=== PATIENT | male | born 1980 | race Caucasian/White ===

== ENCOUNTER 2018-06-02 19:17 | Inpatient (IN) | payer OTHER ==
[2018-06-02 22:56] VITALS: BMI 25.9
--- NOTE | 2018-06-03 00:42 | HP ---
COWS - Scale Resting Pulse: 0= [place] 80 or Below Sweatin=Flushed/Facial Moisture Restless Observation: 0= Sits Still Pupil Size: 1= Pupils >than Normal Bone or Joint Aches: 4=Acute Joint/Muscle Pain Runny Nose/ Eye Tearin= Runny Nose/Eyes GI Upset > 30mins: 1= Stomach Cramp Tremor Observation: 2= Slight Tremor Visible Yawning Observation: 1= 1-2x During Session Anxiety or Irritability: 1=Feels Anxious/Irritable Goose Flesh Skin: 0=Smooth Skin COWS Score: 14 CIWA Score - CIWA Score Nausea/Vomitin Muscle Tremors: 4-Moderate,w/Arms Extend Anxiety: 3 Agitation: 3 Paroxysmal Sweats: 1-Minimal Palms Moist Orientation: 0-Oriented Tacttile Disturbances: 0-None Auditory Disturbances: 0-None Visual Disturbances: 0-None Headache: 2-Mild CIWA-Ar Total Score: 15 Admission ROS BHS - HPI Chief Complaint: Heroin and alcohol withdrawal symptoms Allergies/Adverse Reactions: Allergies Allergy/AdvReac Type Severity Reaction Status Date / Time Sulfa (Sulfonamide Allergy Verified 06/02/18 22:58 Antibiotics) History of Present Illness: 37 years old male with 10 years olf alcohol and heroin dependence is seeking admission to detox. Patient has been in previous detox and reports 2 years of sobriety. He has medical history of asthma and reports insignificant period of sobriety. He denies suicidal ideation and attempt art this time. - Ebola screening Have you traveled outside of the country in the last 21 days: No (N) Have you had contact with anyone from an Ebola affected area: No Have you been sick,other than usual withdrawal symptoms: No Do you have a fever: No - Review of Systems Constitutional: Chills, Malaise, Night Sweats, Weakness EENT: reports: No Symptoms Reported Respiratory: reports: No Symptoms reported Cardiac: reports: No Symptoms Reported GI: reports: Constipated, Poor Appetite, Poor Fluid Intake : reports: No Symptoms Reported Musculoskeletal: reports: No Symptoms Reported Integumentary: reports: No Symptoms Reported Neuro: reports: Tremors Endocrine: reports: No Symptoms Reported Hematology: reports: No Symptoms Reported Psychiatric: reports: No Sypmtoms Reported, Anxious, Depressed Other Systems: Reviewed and Negative Patient History - Patient Medical History Hx Anemia: No Hx Asthma: Yes (Not on medication) Hx Chronic Obstructive Pulmonary Disease (COPD): No Hx Cancer: No Hx Cardiac Disorders: No Hx Congestive Heart Failure: No Hx Hypertension: No Hx Hypercholesterolemia: No Hx Pacemaker: No HX Cerebrovascular Accident: No Hx Seizures: No Hx Dementia: No Hx Diabetes: No Hx Gastrointestinal Disorders: No Hx Liver Disease: No Hx Genitourinary Disorders: No Hx Sexually Transmitted Disorders: No Hx Renal Disease (ESRD): No Hx Thyroid Disease: No Hx Human Immunodeficiency Virus (HIV): No (Negative March 2018) Hx Depression: No Hx Suicide Attempt: No Hx Bipolar Disorder: No Hx Schizophrenia: No Other Medical History: Anxiety - Not on medication - Patient Surgical History Past Surgical History: No Hx Neurologic Surgery: No Hx Cataract Extraction: No Hx Cardiac Surgery: No Hx Lung Surgery: No Hx Abdominal Surgery: No Hx Appendectomy: No Hx Cholecystectomy: No Hx Genitourinary Surgery: No Hx Section: No Hx Orthopedic Surgery: No Anesthesia Reaction: No - PPD History Previous Implant?: No Documented Results: Negative w/o proof Implanted On Prior R Admission?: No PPD to be Administered?: Yes - Reproductive History Patient is a Female of Child Bearing Age (11 -55 yrs old): No (Male) - Smoking Cessation Smoking history: Current every day smoker Have you smoked in the past 12 months: Yes Aproximately how many cigarettes per day: 8 Hx Chewing Tobacco Use: No Initiated information on smoking cessation: Yes 'Breaking Loose' booklet given: 06/03/18 - Substance & Tx. History Hx Alcohol Use: Yes Hx Substance Use: Yes Substance Use Type: Alcohol, Cocaine, Heroin Hx Substance Use Treatment: Yes ([facility]) - Substances Abused Alcohol Route: Oral Frequency: Daily Amount used: 1/2 a pint Rum Age of first use: 20 Date of Last Use: 06/01/18 Heroin Route: Injection Frequency: Daily Amount used: $200 Age of first use: 27 Date of Last Use: 06/02/18 Cocaine Route: Injection Frequency: Daily Amount used: $80 Age of first use: 36 Date of Last Use: 06/02/18 Family Disease History - Family Disease History Family Disease History: Diabetes: Grandparent Admission Physical Exam BHS - Vital Signs Vital Signs: Vital Signs - 24 hr 06/02/18 22:33 Temperature 97.8 F Pulse Rate 70 Respiratory 18 Rate Blood Pressure 127/84 - Physical General Appearance: Yes: Moderate Distress HEENTM: Yes: EOMI, Normal ENT Inspection, Normocephalic, Normal Voice Respiratory: Yes: Lungs Clear, Normal Breath Sounds, No Respiratory Distress Neck: Yes: Supple Breast: Yes: Breast Exam Deferred Cardiology: Yes: Regular Rhythm, Regular Rate Abdominal: Yes: Normal Bowel Sounds Genitourinary: Yes: Within Normal Limits Back: Yes: Normal Inspection Musculoskeletal: Yes: Within Normal Limits, full range of Motion Extremities: Yes: Tremors Neurological: Yes: Fully Oriented, Normal Mood/Affect Integumentary: Yes: Dry Lymphatic: Yes: Within Normal Limits - Diagnostic (1) Asthma Current Visit: Yes Status: Chronic (2) Opioid dependence with withdrawal Current Visit: Yes Status: Chronic (3) Alcohol dependence with uncomplicated withdrawal Current Visit: Yes Status: Chronic Cleared for Admission [facility] - Detox or Rehab [facility] Level of Care: Medically Managed Detox Regimen/Protocol: Methadone/Librium [facility] Breath Alcohol Content Breath Alcohol Content: 0 Urine Drug Screen - Results Drug Screen Negative: No Urine Drug Screen Results: SANDY-Cocaine, OPI-Opiates, OXY-Oxycodone
[2018-06-03] MEDS ORDERED: NICOTINE POLACRILEX 2 MG GUM BC PRN (00:50)
[2018-06-03] MEDS ORDERED: MAGNESIUM CITRATE 300 ML BOTTLE PO PRN (00:50)
[2018-06-03] MEDS ORDERED: MENTHOL/PHENOL 1 EACH UD MM PRN (00:50)
[2018-06-03] MEDS ORDERED: P-EPHED 60MG/TRIPROLIDI 2.5MG TABLET PO PRN (00:50)
[2018-06-03] MEDS ORDERED: chlordiazePOXIDE HCL 25 MG CAPSULE PO ONE (00:50)
[2018-06-03] MEDS ORDERED: MAG HYDROX/AL HYDROX/SIMETH 30 ML UNIT-DOSE CUP PO PRN (00:50)
[2018-06-03] MEDS ORDERED: chlordiazePOXIDE HCL 25 MG CAPSULE PO PRN (00:50)
[2018-06-03] MEDS ORDERED: LOPERAMIDE HCL 2 MG CAPSULE PO PRN (00:50)
[2018-06-03] MEDS ORDERED: MAGNESIUM HYDROX 2400MG/30ML ORAL SUSPENSION 30 ML CUP PO PRN (00:50)
[2018-06-03] MEDS ORDERED: ACETAMINOPHEN 325 MG TABLET (FP) PO PRN (00:50)
[2018-06-03] MEDS ORDERED: guaiFENesin/D-METHORPHAN HB 10 ML UNIT-DOSE CUPS PO PRN (00:50)
[2018-06-03] MEDS ORDERED: IBUPROFEN 400 MG TABLET (FP) PO PRN (00:50)
[2018-06-03] MEDS ORDERED: METHADONE HCL 10 MG TABLET (FOR DETOX USE ONLY) PO ONE ×3 (04:01→22:00)
[2018-06-03] MEDS ORDERED: chlordiazePOXIDE HCL 25 MG CAPSULE PO SCH (05:00)
[2018-06-03] MEDS: chlordiazePOXIDE HCL 25 MG CAPSULE PO SCH ×3 (07:11→17:30)
[2018-06-03] MEDS: chlordiazePOXIDE HCL 25 MG CAPSULE PO PRN ×2 (08:42→15:10)
[2018-06-03] MEDS ORDERED: PRENATAL VITAMINS W/ FOLIC ACID TABLET (FP) PO SCH (10:00)
[2018-06-03] MEDS ORDERED: NICOTINE 14 MG/24 HOURS TOPICAL PATCH TD SCH (10:00)
--- NOTE | 2018-06-03 14:43 | PN ---
[facility] CIWA - CIWA Score Nausea/Vomitin Muscle Tremors: 3 Anxiety: 3 Agitation: 2 Paroxysmal Sweats: 1-Minimal Palms Moist Orientation: 0-Oriented Tacttile Disturbances: 1-Very Mild Itch/Numbness Auditory Disturbances: 1-Very Mild Visual Disturbances: 0-None Headache: 2-Mild CIWA-Ar Total Score: 16 BHS COWS - Scale Resting Pulse: 0= [place] 80 or Below Sweatin= Chills/Flushing Restless Observation: 3= Extraneous Movement Pupil Size: 1= Pupils >than Normal Bone or Joint Aches: 2= Severe Diffuse Aches Runny Nose/ Eye Tearin= Runny Nose/Eyes GI Upset > 30mins: 2= Nausea/Diarrhea Tremor Observation of Outstretched Hands: 2= Slight Tremor Visible Yawning Observation: 1= 1-2x During Session Anxiety or Irritability: 2=Irritable/Anxious Goose Flesh Skin: 0=Smooth Skin COWS Score: 16 [facility] Progress Note (SOAP) Subjective: alert,irritable,anxious,interrupted sleep,tremor,pain in the body and back Objective: 06/03/18 14:41 Vital Signs Temperature 97.7 F 06/03/18 10:08 Pulse Rate 70 06/03/18 10:08 Respiratory Rate 16 06/03/18 10:08 Blood Pressure 123/80 06/03/18 10:08 O2 Sat by Pulse Oximetry (%) ekg sinus bradycardia 59/min qt/qtc 412/407 no chest pain,no sob,no dizziness labs pending Assessment: 06/03/18 14:42 withdrawal symptom Plan: continue detox
[2018-06-03 18:58] LABS: URINE APPEARANCE CLEAR; URINE BILIRUBIN NEGATIVE (<2.0 mg/dL); URINE COLOR STRAW; URINE GLUCOSE (UA) NEGATIVE (NEGATIVE); URINE KETONE NEGATIVE (NEGATIVE); URINE LEUK ESTERASE NEGATIVE (NEGATIVE); URINE NITRITE NEGATIVE (NEGATIVE); URINE PROTEIN NEGATIVE (NEGATIVE); URINE UROBILINOGEN NEGATIVE mg/dL (0.2-1.0)
[2018-06-03] MEDS ORDERED: cloNIDine HCL 0.1 MG TABLET PO ONE (19:25)
[2018-06-03] MEDS ORDERED: CYCLOBENZAPRINE HCL 10 MG TABLET (FP) PO PRN (19:25)
[2018-06-03] MEDS ORDERED: hydrOXYzine PAMOATE 50 MG CAPSULE (FP) PO PRN (19:26)
[2018-06-03] MEDS ORDERED: CYCLOBENZAPRINE HCL 10 MG TABLET (FP) PO ONE (19:27)
--- NOTE | 2018-06-03 19:30 | PN ---
S Progress Note Note: withdrawal symptom Vital Signs Temperature 98.2 F 06/03/18 18:03 Pulse Rate 73 06/03/18 18:03 Respiratory Rate 16 06/03/18 18:03 Blood Pressure 116/63 06/03/18 18:03 O2 Sat by Pulse Oximetry (%) flexeril 10 mgs po tid prn clonidine 0.1 mg po now then bid vistaril 5o mgs po q 6 hrs prn for anxiety continue detox closed monitoring
[2018-06-03 21:58] VITALS: BP 133/79; PULSE 78; TEMP 97.9
[2018-06-03] MEDS ORDERED: cloNIDine HCL 0.1 MG TABLET PO SCH (22:00)
[2018-06-03] MEDS ORDERED: MELATONIN 5 MG TABLETS PO PRN (22:00)
[2018-06-03] MEDS ORDERED: THIAMINE HCL 100 MG TABLET (FP) PO SCH (22:00)
--- NOTE | 2018-06-03 22:43 | DS ---
[facility] Detox Discharge Summary Admission Date: 06/02/18 Discharge Date: 06/03/18 - Physical Exam Results Vital Signs: Vital Signs Temperature 97.9 F 06/03/18 21:58 Pulse Rate 78 06/03/18 21:58 Respiratory Rate 16 06/03/18 21:58 Blood Pressure 133/79 06/03/18 21:58 O2 Sat by Pulse Oximetry (%) - Medication Discharge Medications: Ambulatory Orders NK [No Known Home Medication] 06/02/18 - Diagnosis (1) Asthma Status: Chronic (2) Opioid dependence with withdrawal Status: Chronic (3) Alcohol dependence with uncomplicated withdrawal Status: Chronic
[2018-06-04] MEDS ORDERED: chlordiazePOXIDE HCL 25 MG CAPSULE PO SCH ×2 (05:00)
--- NOTE | 2018-06-04 07:42 | DS ---
[facility] Detox Discharge Summary Admission Date: 06/02/18 Discharge Date: 06/03/18 - History Additional Comments: Patient is leaving against medical advance for personal reasons Pertinent Past History: asthma, heroin and alcohol dependence - Physical Exam Results Vital Signs: Vital Signs Temperature 97.9 F 06/03/18 21:58 Pulse Rate 78 06/03/18 21:58 Respiratory Rate 16 06/03/18 21:58 Blood Pressure 133/79 06/03/18 21:58 O2 Sat by Pulse Oximetry (%) Vital Signs Temperature 97.9 F 06/03/18 21:58 Pulse Rate 78 06/03/18 21:58 Respiratory Rate 16 06/03/18 21:58 Blood Pressure 133/79 06/03/18 21:58 O2 Sat by Pulse Oximetry (%) Pertinent Admission Physical Exam Findings: Withdrawal symptoms - Medication Discharge Medications: Ambulatory Orders NK [No Known Home Medication] 06/02/18 - Diagnosis (1) Asthma Status: Chronic (2) Opioid dependence with withdrawal Status: Chronic (3) Alcohol dependence with uncomplicated withdrawal Status: Chronic - AMA Did Patient Leave Against Medical Advice: Yes
--- NOTE | 2018-06-04 08:56 | EKG ---
Test Reason : Blood Pressure : / mmHG Vent. Rate : 059 BPM Atrial Rate : 059 BPM P-R Int : 152 ms QRS Dur : 094 ms QT Int : 412 ms P-R-T Axes : 028 083 067 degrees QTc Int : 407 ms SINUS BRADYCARDIA OTHERWISE NORMAL ECG NO PREVIOUS ECGS AVAILABLE Confirmed by NATHANIEL SANTOYO, ANUSHA ([id number]) on 06/04/2018 8:55:36 AM Referred By: Confirmed By:ANUSHA ARMSTRONG MD
[2018-06-04] MEDS ORDERED: METHADONE HCL 10 MG TABLET (FOR DETOX USE ONLY) PO SCH (10:00)
[2018-06-05] MEDS ORDERED: chlordiazePOXIDE 5 MG CAPSULE PO SCH ×2 (05:00)
[2018-06-05] MEDS ORDERED: METHADONE HCL 5 MG TABLET (FOR DETOX USE ONLY) PO SCH (10:00)
[2018-06-06] MEDS ORDERED: chlordiazePOXIDE HCL 10 MG CAPSULE PO SCH ×2 (05:00)
[2018-06-07] MEDS ORDERED: METHADONE HCL 10 MG TABLET (FOR DETOX USE ONLY) PO SCH (10:00)
[2018-06-08] MEDS ORDERED: METHADONE HCL 5 MG TABLET (FOR DETOX USE ONLY) PO SCH (06:00)
== END 2018-06-03 22:01 | disposition left against medical advice (07) | DRG 770 ==
LOC: YASAS 19:17 → Y6N 23:33
PROVIDERS: ADMIT Surgery; ATTEND Surgery
PROC: HZ2ZZZZ Detoxification Services for Substance Abuse Treatment (ICD-10-PCS; principal; 2018-06-02)
DX: F11.23 Opioid dependence with withdrawal (principal); F10.230 Alcohol dependence with withdrawal, uncomplicated; F14.20 Cocaine dependence, uncomplicated; J45.909 Unspecified asthma, uncomplicated; R00.1 Bradycardia, unspecified; Z88.2 Allergy status to sulfonamides
CPT/HCPCS: 81003; 93005; 93010; J0735

== ENCOUNTER 2019-01-30 23:57 | Inpatient (IN) | payer OTHER ==
--- NOTE | 2019-01-31 02:38 | HP ---
COWS - Scale Resting Pulse: 1= [place] 81-100 Sweatin=Flushed/Facial Moisture Restless Observation: 1= Difficult to Sit Still Pupil Size: 2= Moderately Dilated (Pupils = 4 mm) Bone or Joint Aches: 1= Mild Discomfort Runny Nose/ Eye Tearin= Nasal Congestion GI Upset > 30mins: 0= None Tremor Observation: 2= Slight Tremor Visible Yawning Observation: 1= 1-2x During Session Anxiety or Irritability: 1=Feels Anxious/Irritable Goose Flesh Skin: 0=Smooth Skin COWS Score: 12 CIWA Score Nausea/Vomitin-No Nausea/No Vomiting Muscle Tremors: 3 Anxiety: 3 Agitation: 3 Paroxysmal Sweats: 3 (Increased facial moisture) Orientation: 0-Oriented Tacttile Disturbances: 0-None Auditory Disturbances: 0-None Visual Disturbances: 0-None Headache: 0-None Present CIWA-Ar Total Score: 12 - Admission Criteria OAS Guidelines: Admission for Medically Managed Detox: Requires at least one of the followin. CIWA greater than 12 2. Seizures within the past 24 hours 3. Delirium tremens within the past 24 hours 4. Hallucinations within the past 24 hours 5. Acute intervention needed for co occurring medical disorder 6. Acute intervention needed for co occurring psychiatric disorder 7. Severe withdrawal that cannot be handled at a lower level of care (continued vomiting, continued diarrhea, abnormal vital signs) requiring intravenous medication and/or fluids 8. Patient presents the following: CIWA greater than 12, Acute intervention needed for co-occurring med or psych disorder (Patient w/ cellulitis (L) arm injection site) Admission Criteria Met: Admission criteria met Admission ROS [facility] Chief Complaint: Alcohol and heroin withdrawal. Allergies/Adverse Reactions: Allergies Allergy/AdvReac Type Severity Reaction Status Date / Time Sulfa (Sulfonamide Allergy Verified 01/13/19 22:06 Antibiotics) History of Present Illness: Here for opioid and alcohol detox. Alcohol use since began at age 17. Currently 4-5 1-2 oz shots/day. Heroin use since age 21's. Currently uses 1 bundle/day x 4-5 months. IV. Denies sharing needles or works. Cocaine use since began at age 36. Currently uses 5- 20's/day - IVDU Nicotine use since began at age 16. 1PPD Longest length of sobriety 2 years - 4 years ago. Hx: Overdose about 1 month ago. Has a Narcan kit at home. PMHx: Asthma - no recent relapse. MHHx: Depression. Denies thoughts of harming self or others. Not seeing a MH Provider. No MH meds. Patient Name: Lester Quintana Date: 1980 Address: [address] [place] [address] Sex: Male Rx Written Rx Dispensed Drug Quantity Days Supply Prescriber Name 02/20/2018 02/21/2018 chlordiazepoxide 25 mg capsule 26 5 Arabella Castellanos Exam Limitations: No Limitations - Ebola screening Have you traveled outside of the country in the last 21 days: No Have you had contact with anyone from an Ebola affected area: No Have you been sick,other than usual withdrawal symptoms: No Do you have a fever: No - Review of Systems Constitutional: Chills, Diaphoresis, Changes in sleep (Difficulty falling asleep sometimes) EENT: reports: No Symptoms Reported Respiratory: reports: No Symptoms reported Cardiac: reports: No Symptoms Reported GI: reports: Indigestion (acid reflux - not taking anything) : reports: No Symptoms Reported Musculoskeletal: reports: Back Pain (LBP r/t living in streets and withdrawal.) Integumentary: reports: No Symptoms Reported Neuro: reports: No Symptoms reported Endocrine: reports: No Symptoms Reported Hematology: reports: No Symptoms Reported Psychiatric: reports: Judgement Intact, Orientated x3, Agitated, Anxious, Depressed (Denies thoughts of harmng self or others) Patient History - Patient Medical History Hx Anemia: No Hx Asthma: Yes (Not on medication) Hx Chronic Obstructive Pulmonary Disease (COPD): No Hx Cancer: No Hx Cardiac Disorders: No Hx Congestive Heart Failure: No Hx Hypertension: No Hx Hypercholesterolemia: No Hx Pacemaker: No HX Cerebrovascular Accident: No Hx Seizures: No Hx Dementia: No Hx Diabetes: No Hx Gastrointestinal Disorders: No Hx Liver Disease: No Hx Genitourinary Disorders: No Hx Sexually Transmitted Disorders: No Hx Renal Disease (ESRD): No Hx Thyroid Disease: No Hx Human Immunodeficiency Virus (HIV): No (Negative March 2018) Hx Depression: No Hx Suicide Attempt: No Hx Bipolar Disorder: No Hx Schizophrenia: No - Patient Surgical History Past Surgical History: No Hx Neurologic Surgery: No Hx Cataract Extraction: No Hx Cardiac Surgery: No Hx Lung Surgery: No Hx Breast Surgery: No Hx Breast Biopsy: No Hx Abdominal Surgery: No Hx Appendectomy: No Hx Cholecystectomy: No Hx Genitourinary Surgery: No Hx Section: No Hx Orthopedic Surgery: No Anesthesia Reaction: No - PPD History Previous Implant?: Yes Documented Results: Negative w/o proof Implanted On Prior [facility] Admission?: Yes Date: 06/05/18 PPD to be Administered?: No - Smoking Cessation Smoking history: Current every day smoker Have you smoked in the past 12 months: Yes Aproximately how many cigarettes per day: 20 Hx Chewing Tobacco Use: No Initiated information on smoking cessation: Yes 'Breaking Loose' booklet given: 01/30/19 - Substance & Tx. History Hx Alcohol Use: Yes Hx Substance Use: Yes Substance Use Type: Alcohol, Heroin Hx Substance Use Treatment: Yes (detox, past hx [facility].) - Substances abused Alcohol Substance route: Oral Frequency: Daily Amount used: 4-5 1-2 oz shots Age of first use: 17 Date of last use: 01/30/19 Heroin Substance route: Injection Frequency: Daily Amount used: 1 bundle Age of first use: 21 Date of last use: 01/30/19 Cocaine Substance route: Injection Frequency: Daily Amount used: 5 - 20's Age of first use: 36 Date of last use: 01/30/19 Family Disease History - Family Disease History Family Disease History: Diabetes: Grandparent Admission Physical Exam S - Vital Signs Vital Signs: Vital Signs - 24 hr 01/31/19 01:18 Temperature 98.2 F Respiratory 95 H Rate Blood Pressure 122/75 - Physical General Appearance: Yes: Disheveled, Mild Distress, Tremorous (Slight tremors), Irritable, Sweating (Increased facial moisture), Anxious HEENTM: Yes: EOMI (Jerking movement of eyes on lateral gaze), Hearing grossly Normal, Normal ENT Inspection, Normocephalic, Normal Voice, ANGELINA (Pupils = 4 mm) Respiratory: Yes: Lungs Clear, Normal Breath Sounds, No Respiratory Distress Neck: Yes: No masses,lesions,Nodules, Supple Breast: Yes: Breast Exam Deferred Cardiology: Yes: Regular Rhythm, Regular Rate, S1, S2 Abdominal: Yes: Non Tender, Flat, Soft, Increased Bowel Sounds Genitourinary: Yes: Within Normal Limits Back: Yes: Normal Inspection Musculoskeletal: Yes: full range of Motion, Gait Steady Extremities: Yes: Normal Capillary Refill, Normal Range of Motion, Non-Tender, Tremors (Mild treors) Neurological: Yes: stator tester II-XII NML intact (Jerking movement of eyes on lateral gaze), Fully Oriented, Motor Strength 5/5, Normal Response Integumentary: Yes: Normal Color, Dry, Warm, Rash (Generalized papular-like lesions - from picking skin), Track Pierce (Old and new track pierce), Other ((L) arm with increased warmth, redness, and induration at injection sites) Lymphatic: Yes: Within Normal Limits - Diagnostic (1) History of asthma Current Visit: Yes Status: Chronic (2) Cellulitis Current Visit: Yes Status: Acute Qualifiers: Site of cellulitis: extremity Site of cellulitis of extremity: upper extremity Laterality: left Qualified Code(s): L03.114 - Cellulitis of left upper limb (3) Alcohol dependence with uncomplicated withdrawal Current Visit: Yes Status: Acute (4) Opioid dependence with withdrawal Current Visit: Yes Status: Acute (5) Skin lesions, generalized Current Visit: Yes Status: Chronic Cleared for Admission [facility] - Detox or Rehab [facility] Level of Care: Medically Managed Detox Regimen/Protocol: Methadone/Librium Breathalyzer - Breathalyzer Breathalyzer: 0 Urine Drug Screen - Test Device Lot number: [id number] Expiration date: 09/29/20 - Control Is test valid?: Yes - Results Drug screen NEGATIVE: No Urine drug screen results: SANDY-Cocaine Inpatient Rehab Admission - Rehab Decision to Admit Inpatient rehab admission?: No
[2019-01-31] MEDS ORDERED: MENTHOL/PHENOL 1 EACH UD MM PRN (03:16)
[2019-01-31] MEDS ORDERED: MAGNESIUM CITRATE 300 ML BOTTLE PO PRN (03:16)
[2019-01-31] MEDS ORDERED: NICOTINE POLACRILEX 2 MG GUM BUC PRN (03:16)
[2019-01-31] MEDS ORDERED: METHADONE HCL 10 MG TABLET (FOR DETOX USE ONLY) PO ONE ×2 (03:16→10:00)
[2019-01-31] MEDS ORDERED: MAGNESIUM HYDROX 2400MG/30ML ORAL SUSPENSION 30 ML CUP PO PRN (03:16)
[2019-01-31] MEDS ORDERED: ACETAMINOPHEN 325 MG TABLET (FP) PO PRN ×2 (03:16)
[2019-01-31] MEDS ORDERED: PROCHLORPERAZINE MALEATE 5 MG TABLET PO PRN (03:16)
[2019-01-31] MEDS ORDERED: MELATONIN 5 MG TABLETS PO PRN (03:16)
[2019-01-31] MEDS ORDERED: NICOTINE 14 MG/24 HOURS TOPICAL PATCH TD PRN (03:16)
[2019-01-31] MEDS ORDERED: MAG HYDROX/AL HYDROX/SIMETH 30 ML UNIT-DOSE CUP PO PRN (03:16)
[2019-01-31] MEDS ORDERED: guaiFENesin 200 MG/10 ML 10 ML UNIT-DOSE CUPS PO PRN (03:16)
[2019-01-31] MEDS ORDERED: NALOXONE HCL 0.4 MG/ML VIAL IVPUSH PRN (03:16)
[2019-01-31] MEDS ORDERED: BISMUTH SUBSALICYLATE 524 MG/30 ML UD PO PRN (03:16)
[2019-01-31] MEDS ORDERED: IBUPROFEN 400 MG TABLET (FP) PO PRN (03:16)
[2019-01-31] MEDS: METHOCARBAMOL 500 MG TABLET PO PRN ×2 (04:20→22:55)
[2019-01-31] MEDS: chlordiazePOXIDE HCL 25 MG CAPSULE PO SCH ×3 (04:21→21:50)
[2019-01-31] MEDS: CEPHALEXIN MONOHYDRATE 500 MG CAPSULE (UD) PO SCH ×4 (05:25→23:03)
[2019-01-31] MEDS ORDERED: BACITRACIN 15 GM TUBE TOPICAL OINTMENT TP SCH (10:00)
[2019-01-31] MEDS: PRENATAL VITAMINS W/ FOLIC ACID TABLET (FP) PO SCH (10:27)
[2019-01-31] MEDS: BACITRACIN 0.9 GM PACKET TP SCH ×2 (12:05→21:50)
[2019-01-31 12:37] LABS: HEMATOCRIT 34.8 % (35.4-49); HEMOGLOBIN 11.2 GM/dL (11.7-16.9); MCH 25.6 pg (25.7-33.7); MCHC 32.3 g/dl (32.0-35.9); MEAN CELL VOLUME 79.2 fl (80-96); MEAN PLT VOLUME 7.8 fl (7.5-11.1); PLATELET COUNT 447 K/MM3 (134-434); RBC 4.39 M/mm3 (4.00-5.60); WHITE BLOOD COUNT 6.8 K/mm3 (4.0-10.0)
[2019-01-31 12:43] LABS: ALBUMIN 3.2 g/dl (3.4-5.0); ALK PHOS 104 U/L (45-117); ANION GAP 6 MMOL/L (8-16); BILIRUBIN,TOTAL 0.2 mg/dL (0.2-1); BLOOD UREA NITROGEN 11 mg/dL (7-18); CALCIUM 8.6 mg/dL (8.5-10.1); CHLORIDE 101 mmol/L (98-107); CO2 32 mmol/L (21-32); CREATININE 1.2 mg/dL (0.55-1.3); GLUCOSE,RANDOM 72 mg/dL (74-106); POTASSIUM 4.3 mmol/L (3.5-5.1); SGOT/AST 17 U/L (15-37); SGPT/ALT 14 U/L (13-61); SODIUM 140 mmol/L (136-145); TOT PROT 6.8 g/dl (6.4-8.2)
[2019-01-31 14:48] LABS: PH,URINE 5.5 (5.0-8.0); URINE APPEARANCE CLEAR; URINE BILIRUBIN NEGATIVE (NEGATIVE); URINE COLOR DK YELLOW; URINE GLUCOSE (UA) NEGATIVE (NEGATIVE); URINE KETONE TRACE (NEGATIVE); URINE LEUK ESTERASE NEGATIVE (NEGATIVE); URINE NITRITE NEGATIVE (NEGATIVE); URINE PROTEIN TRACE (NEGATIVE)
--- NOTE | 2019-01-31 15:15 | EKG ---
Test Reason : Blood Pressure : / mmHG Vent. Rate : 065 BPM Atrial Rate : 065 BPM P-R Int : 150 ms QRS Dur : 094 ms QT Int : 418 ms P-R-T Axes : 038 086 075 degrees QTc Int : 434 ms NORMAL SINUS RHYTHM NORMAL ECG WHEN COMPARED WITH ECG OF 03-JUN-2018 01:56, NO SIGNIFICANT CHANGE WAS FOUND Confirmed by ANUSHA ARMSTRONG MD ([id number]) on 01/31/2019 3:15:00 PM Referred By: JACOB Confirmed By:ANUSHA ARMSTRONG MD
--- NOTE | 2019-01-31 16:46 | PN ---
S CIWA - CIWA Score Nausea/Vomitin-No Nausea/No Vomiting Muscle Tremors: 2 Anxiety: 3 Agitation: 1-Slight > Activity Paroxysmal Sweats: 3 Orientation: 0-Oriented Tacttile Disturbances: 2-Mild Itch/Numbness/Burn Auditory Disturbances: 3-Moderate Harsh/Frighten Visual Disturbances: 1-Very Mild Sensitivity Headache: 0-None Present CIWA-Ar Total Score: 15 BHS COWS - Scale Resting Pulse: 0= [place] 80 or Below Sweatin= Chills/Flushing Restless Observation: 1= Difficult to Sit Still Pupil Size: 0= Normal to Room Light Bone or Joint Aches: 0= None Runny Nose/ Eye Tearin= Nasal Congestion GI Upset > 30mins: 0= None Tremor Observation of Outstretched Hands: 2= Slight Tremor Visible Yawning Observation: 1= 1-2x During Session Anxiety or Irritability: 2=Irritable/Anxious Goose Flesh Skin: 3=Piloerection COWS Score: 11 S Progress Note (SOAP) Subjective: Chills, Anxious, Tremors, Sweating. Objective: PATIENT A & O X 3, OBSERVED AMBULATING ON UNIT. IN NO ACUTE DISTRESS. 01/31/19 16:44 Vital Signs Temperature 98.6 F 01/31/19 14:26 Pulse Rate 68 01/31/19 14:26 Respiratory Rate 18 01/31/19 14:26 Blood Pressure 126/74 01/31/19 14:26 O2 Sat by Pulse Oximetry (%) Laboratory Tests 01/31/19 01/31/19 01/31/19 07:00 07:00 07:00 WBC 6.8 RBC 4.39 Hgb 11.2 L Hct 34.8 L MCV 79.2 L MCH 25.6 L MCHC 32.3 RDW 15.0 Plt Count 447 H MPV 7.8 Sodium 140 Potassium 4.3 Chloride 101 Carbon Dioxide 32 Anion Gap 6 L BUN 11 Creatinine 1.2 Creat Clearance w eGFR 68.13 Random Glucose 72 L Calcium 8.6 Total Bilirubin 0.2 AST 17 ALT 14 Alkaline Phosphatase 104 Total Protein 6.8 Albumin 3.2 L Urine Color Urine Appearance Urine pH Ur Specific [place] Urine Protein Urine Glucose (UA) Urine Ketones Urine Blood Urine Nitrite Urine Bilirubin Urine Urobilinogen Ur Leukocyte Esterase HIV 1&2 Antibody Screen Negative HIV P24 Antigen Negative 01/31/19 12:00 WBC RBC Hgb Hct MCV MCH MCHC RDW Plt Count MPV Sodium Potassium Chloride Carbon Dioxide Anion Gap BUN Creatinine Creat Clearance w eGFR Random Glucose Calcium Total Bilirubin AST ALT Alkaline Phosphatase Total Protein Albumin Urine Color Dk yellow Urine Appearance Clear Urine pH 5.5 D Ur Specific [place] 1.030 Urine Protein Trace Urine Glucose (UA) Negative Urine Ketones Trace H Urine Blood Negative Urine Nitrite Negative Urine Bilirubin Negative Urine Urobilinogen 1.0 Ur Leukocyte Esterase Negative HIV 1&2 Antibody Screen HIV P24 Antigen LABS NOTED. Assessment: 01/31/19 16:45 WITHDRAWAL SYMPTOMS. ANEMIA (MICROCYTIC). Plan: CONTINUE DETOX. FEOSOL, 325 MG PO DAILY FOR ANEMIA (MICROCYTIC).
[2019-01-31] MEDS: chlordiazePOXIDE HCL 10 MG CAPSULE PO PRN (17:56)
[2019-01-31] MEDS: FERROUS SO4 325 MG TABLET (FP) PO SCH (17:56)
[2019-01-31] MEDS: THIAMINE HCL 100 MG TABLET (FP) PO SCH (21:50)
[2019-02-01] MEDS: chlordiazePOXIDE 5 MG CAPSULE PO SCH ×3 (05:35→21:50)
[2019-02-01] MEDS: CEPHALEXIN MONOHYDRATE 500 MG CAPSULE (UD) PO SCH ×4 (05:35→23:13)
[2019-02-01] MEDS: FERROUS SO4 325 MG TABLET (FP) PO SCH (07:30)
[2019-02-01] MEDS ORDERED: METHADONE HCL 5 MG TABLET (FOR DETOX USE ONLY) PO ONE (10:00)
[2019-02-01] MEDS: PRENATAL VITAMINS W/ FOLIC ACID TABLET (FP) PO SCH (10:20)
[2019-02-01] MEDS: BACITRACIN 0.9 GM PACKET TP SCH ×2 (10:20→21:49)
[2019-02-01] MEDS: METHOCARBAMOL 500 MG TABLET PO PRN ×2 (13:34→23:41)
--- NOTE | 2019-02-01 16:06 | PN ---
S CIWA - CIWA Score Nausea/Vomitin-No Nausea/No Vomiting Muscle Tremors: 2 Anxiety: 4-Mod. Anxious/Guarded Agitation: 2 Paroxysmal Sweats: 3 Orientation: 0-Oriented Tacttile Disturbances: 2-Mild Itch/Numbness/Burn Auditory Disturbances: 0-None Visual Disturbances: 0-None Headache: 0-None Present CIWA-Ar Total Score: 13 BHS COWS - Scale Resting Pulse: 0= [place] 80 or Below Sweatin= Chills/Flushing Restless Observation: 1= Difficult to Sit Still Pupil Size: 0= Normal to Room Light Bone or Joint Aches: 0= None Runny Nose/ Eye Tearin= Nasal Congestion GI Upset > 30mins: 0= None Tremor Observation of Outstretched Hands: 2= Slight Tremor Visible Yawning Observation: 1= 1-2x During Session Anxiety or Irritability: 2=Irritable/Anxious Goose Flesh Skin: 0=Smooth Skin COWS Score: 8 BHS Progress Note (SOAP) Subjective: Anxious, Tremors, Chills, Sweating. Objective: PATIENT A & O X 3. IN NO ACUTE DISTRESS. 02/01/19 16:05 Vital Signs Temperature 97.1 F L 02/01/19 14:08 Pulse Rate 76 02/01/19 14:08 Respiratory Rate 18 02/01/19 14:08 Blood Pressure 152/96 02/01/19 14:08 O2 Sat by Pulse Oximetry (%) Laboratory Tests 01/31/19 01/31/19 01/31/19 07:00 07:00 07:00 WBC 6.8 RBC 4.39 Hgb 11.2 L Hct 34.8 L MCV 79.2 L MCH 25.6 L MCHC 32.3 RDW 15.0 Plt Count 447 H MPV 7.8 Sodium 140 Potassium 4.3 Chloride 101 Carbon Dioxide 32 Anion Gap 6 L BUN 11 Creatinine 1.2 Creat Clearance w eGFR 68.13 Random Glucose 72 L Calcium 8.6 Total Bilirubin 0.2 AST 17 ALT 14 Alkaline Phosphatase 104 Total Protein 6.8 Albumin 3.2 L Urine Color Urine Appearance Urine pH Ur Specific [place] Urine Protein Urine Glucose (UA) Urine Ketones Urine Blood Urine Nitrite Urine Bilirubin Urine Urobilinogen Ur Leukocyte Esterase RPR Titer Nonreactive HIV 1&2 Antibody Screen HIV P24 Antigen 01/31/19 01/31/19 07:00 12:00 WBC RBC Hgb Hct MCV MCH MCHC RDW Plt Count MPV Sodium Potassium Chloride Carbon Dioxide Anion Gap BUN Creatinine Creat Clearance w eGFR Random Glucose Calcium Total Bilirubin AST ALT Alkaline Phosphatase Total Protein Albumin Urine Color Dk yellow Urine Appearance Clear Urine pH 5.5 D Ur Specific [place] 1.030 Urine Protein Trace Urine Glucose (UA) Negative Urine Ketones Trace H Urine Blood Negative Urine Nitrite Negative Urine Bilirubin Negative Urine Urobilinogen 1.0 Ur Leukocyte Esterase Negative RPR Titer HIV 1&2 Antibody Screen Negative HIV P24 Antigen Negative LABS NOTED. Assessment: 02/01/19 16:05 WITHDRAWAL SYMPTOMS. ANEMIA (MICROCYTIC). 02/01/19 16:05 Plan: CONTINUE DETOX. CONTINUE FEOSOL.
[2019-02-01] MEDS: chlordiazePOXIDE HCL 10 MG CAPSULE PO PRN (17:32)
[2019-02-01] MEDS: THIAMINE HCL 100 MG TABLET (FP) PO SCH (21:49)
[2019-02-02] MEDS: chlordiazePOXIDE HCL 10 MG CAPSULE PO PRN (00:59)
[2019-02-02] MEDS ORDERED: cloNIDine HCL 0.1 MG TABLET PO ONE (01:02)
[2019-02-02] MEDS ORDERED: chlordiazePOXIDE HCL 10 MG CAPSULE PO PRN (05:00)
[2019-02-02] MEDS: chlordiazePOXIDE HCL 10 MG CAPSULE PO SCH ×2 (05:54→14:18)
[2019-02-02] MEDS: METHOCARBAMOL 500 MG TABLET PO PRN ×2 (05:54→14:18)
[2019-02-02] MEDS: CEPHALEXIN MONOHYDRATE 500 MG CAPSULE (UD) PO SCH ×2 (05:54→14:18)
[2019-02-02] MEDS: FERROUS SO4 325 MG TABLET (FP) PO SCH (08:10)
[2019-02-02] MEDS ORDERED: METHADONE HCL 10 MG TABLET (FOR DETOX USE ONLY) PO ONE (10:00)
[2019-02-02] MEDS: PRENATAL VITAMINS W/ FOLIC ACID TABLET (FP) PO SCH (10:12)
[2019-02-02] MEDS: BACITRACIN 0.9 GM PACKET TP SCH (10:12)
[2019-02-02 14:20] VITALS: BP 122/82; PULSE 81; TEMP 96.1
--- NOTE | 2019-02-02 20:03 | PN ---
[facility] Progress Note (SOAP) Subjective: Patient denies current Withdrawal / Detox symptoms and reports that he feels well overall. Objective: PATIENT A & O X 3, OBSERVED AMBULATING ON UNIT. IN NO ACUTE DISTRESS. Vital Signs Temperature 96.1 F L 02/02/19 14:20 Pulse Rate 81 02/02/19 14:20 Respiratory Rate 18 02/02/19 14:20 Blood Pressure 122/82 02/02/19 14:20 O2 Sat by Pulse Oximetry (%) Laboratory Tests 01/31/19 01/31/19 01/31/19 07:00 07:00 07:00 WBC 6.8 RBC 4.39 Hgb 11.2 L Hct 34.8 L MCV 79.2 L MCH 25.6 L MCHC 32.3 RDW 15.0 Plt Count 447 H MPV 7.8 Sodium 140 Potassium 4.3 Chloride 101 Carbon Dioxide 32 Anion Gap 6 L BUN 11 Creatinine 1.2 Creat Clearance w eGFR 68.13 Random Glucose 72 L Calcium 8.6 Total Bilirubin 0.2 AST 17 ALT 14 Alkaline Phosphatase 104 Total Protein 6.8 Albumin 3.2 L Urine Color Urine Appearance Urine pH Ur Specific [place] Urine Protein Urine Glucose (UA) Urine Ketones Urine Blood Urine Nitrite Urine Bilirubin Urine Urobilinogen Ur Leukocyte Esterase RPR Titer Nonreactive HIV 1&2 Antibody Screen HIV P24 Antigen 01/31/19 01/31/19 07:00 12:00 WBC RBC Hgb Hct MCV MCH MCHC RDW Plt Count MPV Sodium Potassium Chloride Carbon Dioxide Anion Gap BUN Creatinine Creat Clearance w eGFR Random Glucose Calcium Total Bilirubin AST ALT Alkaline Phosphatase Total Protein Albumin Urine Color Dk yellow Urine Appearance Clear Urine pH 5.5 D Ur Specific [place] 1.030 Urine Protein Trace Urine Glucose (UA) Negative Urine Ketones Trace H Urine Blood Negative Urine Nitrite Negative Urine Bilirubin Negative Urine Urobilinogen 1.0 Ur Leukocyte Esterase Negative RPR Titer HIV 1&2 Antibody Screen Negative HIV P24 Antigen Negative LABS NOTED. 02/02/19 20:00 Assessment: 02/02/19 20:01 COMPLETION OF DETOX REGIMEN. Plan: SINCE PATIENT DENIES CURRENT WITHDRAWAL / DETOX SYMPTOMS AND REPORTS THAT HE FEELS WELL OVERALL, AT PATIENT'S REQUEST, HE WAS GRANTED AN EARLY DISCHARGE FROM DETOX UNIT TODAY.
--- NOTE | 2019-02-02 20:15 | DS ---
[facility] Detox Discharge Summary Admission Date: 01/31/19 Discharge Date: 02/02/19 - History Present History: Alcohol Dependence, Opioid Dependence Additional Comments: PATIENT DENIES CURRENT WITHDRAWAL / DETOX SYMPTOMS AND REPORTS THAT HE FEELS WELL OVERALL AT TIME OF DISCHARGE FROM DETOX UNIT. PATIENT ELECTING TO RETURN HOME. PATIENT ADVISED TO CONSIDER LOCAL 12-STEP / NA / AA OUTPATIENT SUPPORT GROUP PROGRAMS FOR AFTERCARE. PATIENT NOTES THAT HE WILL POSSIBLY APPLY FOR ADMISSION TO [facility] ON 02/05/2019. PRESCRIPTION FOR ANTIBIOTIC ( KEFLEX) PRESCRIBED ON ADMISSION TO DETOX UNIT FOR TREATMENT OF CELLILITUS OF LEFT UPPER EXTREMITY SENT TO [facility] ([place], [place]), AT PATIENT'S REQUEST, FOR FOLLOW-UP AFTERCARE. PATIENT ADVISED TO BANDER HAND PRESCRIPTION AND TO COMPLETE FULL COURS EOF ANTIBIOTIC. PATIENT ALSO ADVISED TO FOLLOW-UP WITH DIRECTOR OF INSTITUTIONAL RESEARCH AFTER DISCHARGE FROM DETOX FOR GENERAL MEDICAL ASSESSMENT, FOR CELLULIITS NOTED OF LEFT UPPER EXTREMITY NOTED ON ADMISSION TO DETOX, AND FOR ANEMIA NOTED ON DETOX ADMISSION LABORATORY ASSESSMENT. PATIENT VERBALIZED UNDERSTANDING OF ALL RECOMMENDATIONS PRESENTED TO HIM AT TIME OF DISCHARGE FROM DETOX UNIT. COPIES OF RESULTS OF ALL LABS DRAWN WHILE ADMITTED FOR DETOX GIVEN TO PATIENT AT TIME OF DISCHARGE FROM DETOX UNIT. PATIENT WAS DISCHARGED FROM DETOX UNIT IN STABLE MEDICAL CONDITION. Pertinent Past History: Asthma, Skin Lesions (Generalized), Cellulitis of Left Arm. - Physical Exam Results Vital Signs: Vital Signs Temperature 96.1 F L 02/02/19 14:20 Pulse Rate 81 02/02/19 14:20 Respiratory Rate 18 02/02/19 14:20 Blood Pressure 122/82 02/02/19 14:20 O2 Sat by Pulse Oximetry (%) Pertinent Admission Physical Exam Findings: WITHDRAWAL SYMPTOMS. Laboratory Tests 01/31/19 01/31/19 01/31/19 07:00 07:00 07:00 WBC 6.8 RBC 4.39 Hgb 11.2 L Hct 34.8 L MCV 79.2 L MCH 25.6 L MCHC 32.3 RDW 15.0 Plt Count 447 H MPV 7.8 Sodium 140 Potassium 4.3 Chloride 101 Carbon Dioxide 32 Anion Gap 6 L BUN 11 Creatinine 1.2 Creat Clearance w eGFR 68.13 Random Glucose 72 L Calcium 8.6 Total Bilirubin 0.2 AST 17 ALT 14 Alkaline Phosphatase 104 Total Protein 6.8 Albumin 3.2 L Urine Color Urine Appearance Urine pH Ur Specific [place] Urine Protein Urine Glucose (UA) Urine Ketones Urine Blood Urine Nitrite Urine Bilirubin Urine Urobilinogen Ur Leukocyte Esterase RPR Titer Nonreactive HIV 1&2 Antibody Screen HIV P24 Antigen 01/31/19 01/31/19 07:00 12:00 WBC RBC Hgb Hct MCV MCH MCHC RDW Plt Count MPV Sodium Potassium Chloride Carbon Dioxide Anion Gap BUN Creatinine Creat Clearance w eGFR Random Glucose Calcium Total Bilirubin AST ALT Alkaline Phosphatase Total Protein Albumin Urine Color Dk yellow Urine Appearance Clear Urine pH 5.5 D Ur Specific [place] 1.030 Urine Protein Trace Urine Glucose (UA) Negative Urine Ketones Trace H Urine Blood Negative Urine Nitrite Negative Urine Bilirubin Negative Urine Urobilinogen 1.0 Ur Leukocyte Esterase Negative RPR Titer HIV 1&2 Antibody Screen Negative HIV P24 Antigen Negative LABS NOTED. - Treatment Hospital Course: Detox Protocol Followed, Detoxed Safely, Responded well, Discharged Condition Good Patient has Accepted a Rehab Referral to: [address] ([place], [place]). - Medication Discharge Medications: Ambulatory Orders Albuterol Sulfate Inhaler - [Ventolin Hfa Inhaler -] 2 inh PO Q4H PRN 01/31/19 Cephalexin [Keflex] 500 mg PO Q6H 5 Days #20 capsule 02/02/19 - Diagnosis (1) Alcohol dependence with uncomplicated withdrawal Status: Acute (2) Cellulitis Status: Acute Qualifiers: Site of cellulitis: extremity Site of cellulitis of extremity: upper extremity Laterality: left Qualified Code(s): L03.114 - Cellulitis of left upper limb (3) Opioid dependence with withdrawal Status: Acute (4) Skin lesions, generalized Status: Chronic (5) Microcytic anemia Status: Acute (6) History of asthma Status: Chronic - AMA Did Patient Leave Against Medical Advice: No
[2019-02-03] MEDS ORDERED: METHADONE HCL 5 MG TABLET (FOR DETOX USE ONLY) PO ONE (06:00)
== END 2019-02-02 14:45 | disposition home or self-care (01) | DRG 773 ==
LOC: YASAS 23:57 → Y3N 01-31 03:05
PROVIDERS: ADMIT Surgery; ATTEND Surgery
PROC: HZ2ZZZZ Detoxification Services for Substance Abuse Treatment (ICD-10-PCS; principal; 2019-01-31)
DX: F10.230 Alcohol dependence with withdrawal, uncomplicated (principal); F11.20 Opioid dependence, uncomplicated; L03.114 Cellulitis of left upper limb; L98.8 Other specified disorders of the skin and subcutaneous tissue; D50.9 Iron deficiency anemia, unspecified; J45.909 Unspecified asthma, uncomplicated
CPT/HCPCS: 36415; 80053; 81003; 85027; 86593; 87389; 93005; 93010; J0735

== ENCOUNTER 2019-09-28 20:49 | Inpatient (IN) | payer OTHER ==
[2019-09-28 23:50] VITALS: BMI 24.6
--- NOTE | 2019-09-29 00:40 | HP ---
COWS - Scale Resting Pulse: 0= [place] 80 or Below Sweatin= Chills/Flushing Restless Observation: 5= Unable to Sit Still Pupil Size: 1= Pupils >than Normal Bone or Joint Aches: 4=Acute Joint/Muscle Pain Runny Nose/ Eye Tearin= Nasal Congestion GI Upset > 30mins: 2= Nausea/Diarrhea Tremor Observation: 0= None Yawning Observation: 1= 1-2x During Session Anxiety or Irritability: 2=Irritable/Anxious Goose Flesh Skin: 0=Smooth Skin COWS Score: 17 CIWA Score Nausea/Vomitin-Mild Nausea/No Vomiting Muscle Tremors: None Anxiety: 4-Mod. Anxious/Guarded Agitation: 4-Moderately Restless Paroxysmal Sweats: 3 Orientation: 1-Uncertain about Date Tacttile Disturbances: 3-Moderate Itch/Numb/Burn (itching/picking skin) Auditory Disturbances: 0-None Visual Disturbances: 2-Mild Sensitivity (bright lights) Headache: 2-Mild CIWA-Ar Total Score: 20 - Admission Criteria OASAS Guidelines: Admission for Medically Managed Detox: Requires at least one of the followin. CIWA greater than 12 2. Seizures within the past 24 hours 3. Delirium tremens within the past 24 hours 4. Hallucinations within the past 24 hours 5. Acute intervention needed for co occurring medical disorder 6. Acute intervention needed for co occurring psychiatric disorder 7. Severe withdrawal that cannot be handled at a lower level of care (continued vomiting, continued diarrhea, abnormal vital signs) requiring intravenous medication and/or fluids 8. Patient presents the following: CIWA greater than 12 Admission Criteria Met: Admission criteria met Admitting History and Physical - Smoking History Smoking history: Current every day smoker Have you smoked in the past 12 months: Yes Aproximately how many cigarettes per day: 10 - Alcohol/Substance Use Hx Alcohol Use: Yes Admission ROS [facility] - HPI Chief Complaint: seeking detox from heroin/xanax dependence Allergies/Adverse Reactions: Allergies Allergy/AdvReac Type Severity Reaction Status Date / Time Sulfa (Sulfonamide Allergy Severe Swelling Verified 09/28/19 23:39 Antibiotics) History of Present Illness: here for opi/benzo detox. client is self referred. last here 06/22/2019. reports immediate relapse after dc. attempted detox at [facility] 1 month ago but also relapsed right after dc. client reports daily use of heroin and xanax. reports 3 bundles and 6 sitcks/d. last use a few hours ago. now presents with c/o withdrawal sx's. +ivdu, + black outs, + drug overdose. last episode 2 days ago. given narcan by friend . did not f/u with er. . denies hx/o seizures, avh, si/ hi. lives with friend, unemployed, probation Exam Limitations: No Limitations - Ebola screening Have you traveled outside of the country in the last 21 days: No (N) Have you had contact with anyone from an Ebola affected area: No Do you have a fever: No - Review of Systems Constitutional: Chills, Loss of Appetite, Malaise, Night Sweats, Changes in sleep, Unexplained wgt Loss EENT: reports: Dental Problems (missing bottom teeth) Respiratory: reports: Shortness of Breath Cardiac: reports: No Symptoms Reported GI: reports: Nausea, Poor Appetite, Poor Fluid Intake : reports: No Symptoms Reported Musculoskeletal: reports: Back Pain, Joint Pain, Neck Pain Integumentary: reports: Other (skin picking resulting in multiple scabs) Neuro: reports: Headache, Numbness (left foot otes) Endocrine: reports: No Symptoms Reported Hematology: reports: No Symptoms Reported Psychiatric: reports: Orientated x3, Anxious, Depressed (denies si/hi) Other Systems: Reviewed and Negative Patient History - Patient Medical History Hx Anemia: No Hx Asthma: Yes Hx Chronic Obstructive Pulmonary Disease (COPD): No Hx Cancer: No Hx Cardiac Disorders: No Hx Congestive Heart Failure: No Hx Hypertension: No Hx Hypercholesterolemia: No Hx Pacemaker: No HX Cerebrovascular Accident: No Hx Seizures: No Hx Dementia: No Hx Diabetes: No Hx Gastrointestinal Disorders: No Hx Liver Disease: No Hx Genitourinary Disorders: No Hx Sexually Transmitted Disorders: No Hx Renal Disease (ESRD): No Hx Thyroid Disease: No Hx Human Immunodeficiency Virus (HIV): No Hx Hepatitis C: No Hx Depression: No Hx Suicide Attempt: No Hx Bipolar Disorder: No Hx Schizophrenia: No Other Medical History: denies - Patient Surgical History Past Surgical History: No Hx Neurologic Surgery: No Hx Cataract Extraction: No Hx Cardiac Surgery: No Hx Lung Surgery: No Hx Breast Surgery: No Hx Breast Biopsy: No Hx Abdominal Surgery: No Hx Appendectomy: No Hx Cholecystectomy: No Hx Genitourinary Surgery: No Hx Section: No Hx Orthopedic Surgery: No Other Surgical History: right hand surgery in 1995 Anesthesia Reaction: No - PPD History Previous Implant?: Yes Documented Results: Negative w/proof Implanted On Prior [facility] Admission?: Yes Date: 02/02/19 Results: 0MM PPD to be Administered?: Yes - Smoking Cessation Smoking history: Current every day smoker Have you smoked in the past 12 months: Yes Aproximately how many cigarettes per day: 10 Cigars Per Day: 1 Hx Chewing Tobacco Use: No Initiated information on smoking cessation: Yes 'Breaking Loose' booklet given: 09/29/19 - Substance & Tx. History Hx Alcohol Use: No Hx Substance Use: Yes Substance Use Type: Cocaine, Heroin, Tranquilizers (xanax) Hx Substance Use Treatment: Yes ([facility]) - Substances abused Heroin Substance route: Injection Frequency: Daily Amount used: 30 bags Age of first use: 21 Date of last use: 09/28/19 (20 bags) Cocaine Substance route: Injection Frequency: Daily (speed balling w/ heroin) Amount used: 1 gram and half Age of first use: 36 Date of last use: 09/28/19 Alprazolam (Xanax) Substance route: Oral Frequency: Daily Amount used: 6 of 2 mg Age of first use: 39 Date of last use: 09/28/19 (1.5) Alcohol Substance route: Oral Frequency: Daily Amount used: 4-5 2 oz shots of Meghana Age of first use: 17 Date of last use: 08/14/19 Admission Physical Exam S - Vital Signs Vital Signs: Vital Signs - 24 hr 09/29/19 00:21 Respiratory 18 Rate - Physical General Appearance: Yes: Moderate Distress, Irritable, Anxious HEENTM: Yes: EOMI, Normocephalic, Normal Voice, ANGELINA, Pharynx Normal, Other ( missing teeth, poor dentition) Respiratory: Yes: Chest Non-Tender, Lungs Clear, Normal Breath Sounds, No Respiratory Distress, No Accessory Muscle Use Neck: Yes: No masses,lesions,Nodules, Supple, Trachea in good position Breast: Yes: Breasts Symetrical Cardiology: Yes: Regular Rhythm, Regular Rate, S1, S2 Abdominal: Yes: Non Tender, Soft, Increased Bowel Sounds Genitourinary: Yes: Within Normal Limits (no c/o) Back: Yes: Normal Inspection Musculoskeletal: Yes: full range of Motion, Gait Steady Extremities: Yes: Normal Capillary Refill, Normal Range of Motion, Non-Tender Neurological: Yes: Fully Oriented, Alert, Motor Strength 5/5, Depressed Affect ( situational- declines psych services) Integumentary: Yes: Dry, Warm, Other (multiple areas of escoriation to face and arms from picking of skin he also ahs multiple track ball to his hands and arms ) Lymphatic: Yes: Within Normal Limits - Diagnostic (1) Excoriation (skin-picking) disorder Current Visit: Yes Status: Acute (2) Sedative, hypnotic or anxiolytic dependence with withdrawal, uncomplicated Current Visit: Yes Status: Acute (3) Cocaine dependence, uncomplicated Current Visit: Yes Status: Acute (4) Opioid dependence with withdrawal Current Visit: Yes Status: Acute (5) Track ball due to intravenous drug abuse Current Visit: Yes Status: Acute (6) Asthma Current Visit: Yes Status: Chronic Qualifiers: Asthma severity: mild Asthma persistence: intermittent Asthma complication type: uncomplicated Qualified Code(s): J45.20 - Mild intermittent asthma, uncomplicated (7) IVDU (intravenous drug user) Current Visit: Yes Status: Acute Cleared for Admission [facility] - Detox or Rehab [facility] Level of Care: Medically Managed Detox Regimen/Protocol: Methadone/Valium Claeared for Rehab Admission: No Breathalyzer - Breathalyzer Breathalyzer: 0 Urine Drug Screen - Test Device Lot number: [id number] Expiration date: 02/28/21 - Control Is test valid?: Yes - Results Drug screen NEGATIVE: No Urine drug screen results: SANDY-Cocaine, FEN-Fentanyl, MOP-Opiates, OXY-Oxycodone Inpatient Rehab Admission - Rehab Decision to Admit Inpatient rehab admission?: No
[2019-09-29] MEDS ORDERED: NICOTINE POLACRILEX 2 MG GUM BUC PRN (00:47)
[2019-09-29] MEDS ORDERED: P-EPHED 60MG/TRIPROLIDI 2.5MG TABLET PO PRN (00:47)
[2019-09-29] MEDS ORDERED: hydrOXYzine PAMOATE 25 MG CAPSULE (FP) PO PRN (00:47)
[2019-09-29] MEDS ORDERED: guaiFENesin 200 MG/10 ML 10 ML UNIT-DOSE CUPS PO PRN (00:47)
[2019-09-29] MEDS ORDERED: BISMUTH SUBSALICYLATE 524 MG/30 ML UD PO PRN (00:47)
[2019-09-29] MEDS ORDERED: METHADONE HCL 10 MG TABLET (FOR DETOX USE ONLY) PO ONE (00:47)
[2019-09-29] MEDS ORDERED: ONDANSETRON *ODT* 4 MG TABLET SL PRN (00:47)
[2019-09-29] MEDS ORDERED: diazePAM 5 MG TABLET PO ONE (00:47)
[2019-09-29] MEDS ORDERED: IBUPROFEN 400 MG TABLET (FP) PO PRN (00:47)
[2019-09-29] MEDS ORDERED: MAGNESIUM CITRATE 300 ML BOTTLE PO PRN (00:47)
[2019-09-29] MEDS ORDERED: MENTHOL/PHENOL 1 EACH UD MM PRN (00:47)
[2019-09-29] MEDS ORDERED: MAGNESIUM HYDROX 2400MG/30ML ORAL SUSPENSION 30 ML CUP PO PRN (00:47)
[2019-09-29] MEDS ORDERED: DICYCLOMINE HCL 10 MG CAPSULE PO PRN (00:47)
[2019-09-29] MEDS ORDERED: MAG HYDROX/AL HYDROX/SIMETH 30 ML UNIT-DOSE CUP PO PRN (00:47)
[2019-09-29] MEDS ORDERED: METHOCARBAMOL 500 MG TABLET PO PRN (00:47)
[2019-09-29] MEDS ORDERED: ACETAMINOPHEN 325 MG TABLET (FP) PO PRN ×2 (00:47)
[2019-09-29] MEDS ORDERED: cloNIDine HCL 0.1 MG TABLET PO PRN (00:47)
[2019-09-29] MEDS: diazePAM 5 MG TABLET PO SCH ×3 (05:23→22:20)
[2019-09-29] MEDS ORDERED: METHADONE HCL 5 MG TABLET (FOR DETOX USE ONLY) PO ONE (10:00)
[2019-09-29] MEDS: PRENATAL VITAMINS W/ FOLIC ACID TABLET (FP) PO SCH (10:23)
[2019-09-29] MEDS: NICOTINE 21 MG/24 HOURS TOPICAL PATCH TD SCH (10:25)
[2019-09-29 10:58] LABS: ALBUMIN 3.6 g/dl (3.4-5.0); BILIRUBIN,TOTAL 0.3 mg/dL (0.2-1); BLOOD UREA NITROGEN 15.9 mg/dL (7-18); CALCIUM 9.1 mg/dL (8.5-10.1); CREATININE 0.8 mg/dL (0.55-1.3); POTASSIUM 4.3 mmol/L (3.5-5.1)
[2019-09-29 11:07] LABS: HEMATOCRIT 39.4 % (35.4-49); MCH 26.2 pg (25.7-33.7); MCHC 32.9 g/dl (32.0-35.9); MEAN CELL VOLUME 79.7 fl (80-96); PLATELET COUNT 409 K/MM3 (134-434); RBC 4.94 M/mm3 (4.00-5.60); WHITE BLOOD COUNT 5.9 K/mm3 (4.0-10.0)
[2019-09-29] MEDS: MELATONIN 5 MG TABLETS PO PRN (22:20)
[2019-09-29] MEDS: THIAMINE HCL 100 MG TABLET (FP) PO SCH (22:20)
[2019-09-30] MEDS: diazePAM 5 MG TABLET PO SCH ×2 (07:33→17:23)
[2019-09-30] MEDS ORDERED: METHADONE HCL 10 MG TABLET (FOR DETOX USE ONLY) ONE (08:30)
[2019-09-30] MEDS ORDERED: METHADONE HCL 5 MG TABLET (FOR DETOX USE ONLY) ONE (08:31)
[2019-09-30] MEDS ORDERED: METHADONE (DETOX) 20 MG, METHADONE (DETOX) 5 MG PO ONE (10:00)
[2019-09-30] MEDS: NICOTINE 21 MG/24 HOURS TOPICAL PATCH TD SCH (10:22)
[2019-09-30] MEDS: PRENATAL VITAMINS W/ FOLIC ACID TABLET (FP) PO SCH (10:23)
[2019-09-30] MEDS: diazePAM 5 MG TABLET PO PRN ×2 (10:24→21:47)
--- NOTE | 2019-09-30 13:37 | PN ---
[facility] CIWA - CIWA Score Nausea/Vomitin-Mild Nausea/No Vomiting Muscle Tremors: 3 Anxiety: 4-Mod. Anxious/Guarded Agitation: 4-Moderately Restless Paroxysmal Sweats: 2 Orientation: 0-Oriented Tacttile Disturbances: 1-Very Mild Itch/Numbness Auditory Disturbances: 0-None Visual Disturbances: 0-None Headache: 1-Very Mild CIWA-Ar Total Score: 16 [facility] COWS - Scale Resting Pulse: 1= [place] 81-100 Sweatin= Chills/Flushing Restless Observation: 0= Sits Still Pupil Size: 1= Pupils >than Normal Bone or Joint Aches: 2= Severe Diffuse Aches Runny Nose/ Eye Tearin= Nasal Congestion GI Upset > 30mins: 2= Nausea/Diarrhea Tremor Observation of Outstretched Hands: 2= Slight Tremor Visible Yawning Observation: 1= 1-2x During Session Anxiety or Irritability: 2=Irritable/Anxious Goose Flesh Skin: 3=Piloerection COWS Score: 16 S Progress Note (SOAP) Subjective: 39 years old male admitted on 09/29/19 for alcohol benzo and opiate withdrawal sx management treated wtih valium and methadone detox regimen patient tolerated well ate breakfast and lunch ambulating on hallway social with peers in day room Objective: 09/30/19 13:36 Vital Signs Temperature 97.3 F L 09/30/19 13:25 Pulse Rate 82 09/30/19 13:25 Respiratory Rate 18 09/30/19 13:25 Blood Pressure 114/73 09/30/19 13:25 O2 Sat by Pulse Oximetry (%) Laboratory Last Values WBC 5.9 K/mm3 (4.0-10.0) 09/29/19 07:50 RBC 4.94 M/mm3 (4.00-5.60) 09/29/19 07:50 Hgb 13.0 GM/dL (11.7-16.9) 09/29/19 07:50 Hct 39.4 % (35.4-49) 09/29/19 07:50 MCV 79.7 fl (80-96) L 09/29/19 07:50 MCH 26.2 pg (25.7-33.7) 09/29/19 07:50 MCHC 32.9 g/dl (32.0-35.9) 09/29/19 07:50 RDW 15.0 % (11.9-15.9) 09/29/19 07:50 Plt Count 409 K/MM3 (134-434) 09/29/19 07:50 MPV 8.0 fl (7.5-11.1) 09/29/19 07:50 Sodium 139 mmol/L (136-145) 09/29/19 07:50 Potassium 4.3 mmol/L (3.5-5.1) 09/29/19 07:50 Chloride 102 mmol/L (98-107) 09/29/19 07:50 Carbon Dioxide 31 mmol/L (21-32) 09/29/19 07:50 Anion Gap 5 MMOL/L (8-16) L 09/29/19 07:50 BUN 15.9 mg/dL (7-18) 09/29/19 07:50 Creatinine 0.8 mg/dL (0.55-1.3) 09/29/19 07:50 Est GFR (CKD-EPI)AfAm 131.34 09/29/19 07:50 Est GFR (CKD-EPI)NonAf 113.32 09/29/19 07:50 Random Glucose 70 mg/dL (74-106) L 09/29/19 07:50 Calcium 9.1 mg/dL (8.5-10.1) 09/29/19 07:50 Total Bilirubin 0.3 mg/dL (0.2-1) 09/29/19 07:50 AST 24 U/L (15-37) 09/29/19 07:50 ALT 19 U/L (13-61) 09/29/19 07:50 Alkaline Phosphatase 146 U/L (45-117) H 09/29/19 07:50 Total Protein 7.0 g/dl (6.4-8.2) 09/29/19 07:50 Albumin 3.6 g/dl (3.4-5.0) 09/29/19 07:50 lab noted Assessment: 09/30/19 13:36 alcohol and benzo and opiate withdrawal sx Plan: continue valium and methadone detox regimen
[2019-09-30] MEDS: THIAMINE HCL 100 MG TABLET (FP) PO SCH (21:47)
[2019-09-30] MEDS: MELATONIN 5 MG TABLETS PO PRN (21:47)
[2019-10-01] MEDS ORDERED: diazePAM 5 MG TABLET PO ONE (06:00)
[2019-10-01] MEDS ORDERED: METHADONE HCL 10 MG TABLET (FOR DETOX USE ONLY) PO ONE (10:00)
[2019-10-01] MEDS: NICOTINE 21 MG/24 HOURS TOPICAL PATCH TD SCH (10:22)
[2019-10-01] MEDS: diazePAM 5 MG TABLET PO PRN ×3 (10:23→22:09)
[2019-10-01] MEDS: PRENATAL VITAMINS W/ FOLIC ACID TABLET (FP) PO SCH (10:23)
--- NOTE | 2019-10-01 10:51 | PN ---
[facility] CIWA - CIWA Score Nausea/Vomitin-Mild Nausea/No Vomiting Muscle Tremors: 3 Anxiety: 3 Agitation: 1-Slight > Activity Paroxysmal Sweats: 2 Orientation: 0-Oriented Tacttile Disturbances: 1-Very Mild Itch/Numbness Auditory Disturbances: 0-None Visual Disturbances: 0-None Headache: 1-Very Mild CIWA-Ar Total Score: 12 [facility]HS COWS - Scale Resting Pulse: 1= [place] 81-100 Sweatin= Chills/Flushing Restless Observation: 0= Sits Still Pupil Size: 1= Pupils >than Normal Bone or Joint Aches: 1= Mild Discomfort Runny Nose/ Eye Tearin= Nasal Congestion GI Upset > 30mins: 2= Nausea/Diarrhea Tremor Observation of Outstretched Hands: 2= Slight Tremor Visible Yawning Observation: 1= 1-2x During Session Anxiety or Irritability: 2=Irritable/Anxious Goose Flesh Skin: 0=Smooth Skin COWS Score: 12 S Progress Note (SOAP) Subjective: 39 years old male admitted on 09/29/19 for alcohol benzo opiate withdrawal sx management treated with valium and methadone detox regimen requests to be seen by a psychiatrist that has long history of anxiety and depression taking psychotropic medication unknown name nor dosage patient denies suicidal ideation Objective: 10/01/19 10:51 Vital Signs Temperature 97.4 F L 10/01/19 09:05 Pulse Rate 81 10/01/19 09:05 Respiratory Rate 18 10/01/19 09:05 Blood Pressure 105/57 L 10/01/19 09:05 O2 Sat by Pulse Oximetry (%) Laboratory Last Values WBC 5.9 K/mm3 (4.0-10.0) 09/29/19 07:50 RBC 4.94 M/mm3 (4.00-5.60) 09/29/19 07:50 Hgb 13.0 GM/dL (11.7-16.9) 09/29/19 07:50 Hct 39.4 % (35.4-49) 09/29/19 07:50 MCV 79.7 fl (80-96) L 09/29/19 07:50 MCH 26.2 pg (25.7-33.7) 09/29/19 07:50 MCHC 32.9 g/dl (32.0-35.9) 09/29/19 07:50 RDW 15.0 % (11.9-15.9) 09/29/19 07:50 Plt Count 409 K/MM3 (134-434) 09/29/19 07:50 MPV 8.0 fl (7.5-11.1) 09/29/19 07:50 Sodium 139 mmol/L (136-145) 09/29/19 07:50 Potassium 4.3 mmol/L (3.5-5.1) 09/29/19 07:50 Chloride 102 mmol/L (98-107) 09/29/19 07:50 Carbon Dioxide 31 mmol/L (21-32) 09/29/19 07:50 Anion Gap 5 MMOL/L (8-16) L 09/29/19 07:50 BUN 15.9 mg/dL (7-18) 09/29/19 07:50 Creatinine 0.8 mg/dL (0.55-1.3) 09/29/19 07:50 Est GFR (CKD-EPI)AfAm 131.34 09/29/19 07:50 Est GFR (CKD-EPI)NonAf 113.32 09/29/19 07:50 Random Glucose 70 mg/dL (74-106) L 09/29/19 07:50 Calcium 9.1 mg/dL (8.5-10.1) 09/29/19 07:50 Total Bilirubin 0.3 mg/dL (0.2-1) 09/29/19 07:50 AST 24 U/L (15-37) 09/29/19 07:50 ALT 19 U/L (13-61) 09/29/19 07:50 Alkaline Phosphatase 146 U/L (45-117) H 09/29/19 07:50 Total Protein 7.0 g/dl (6.4-8.2) 09/29/19 07:50 Albumin 3.6 g/dl (3.4-5.0) 09/29/19 07:50 lab noted Assessment: 10/01/19 10:52 alcohol benzo opiate withdrawal sx Plan: continue valium and methadone detox regimen
--- NOTE | 2019-10-01 12:01 | EKG ---
Test Reason : Blood Pressure : / mmHG Vent. Rate : 077 BPM Atrial Rate : 077 BPM P-R Int : 156 ms QRS Dur : 092 ms QT Int : 414 ms P-R-T Axes : 034 092 077 degrees QTc Int : 468 ms NORMAL SINUS RHYTHM BORDERLINE ECG WHEN COMPARED WITH ECG OF 31-JAN-2019 02:56, T WAVE VARIATION Confirmed by CHRIS MORALES MD ([id number]) on 10/01/2019 12:01:14 PM Referred By: EMILY Confirmed By:CHRIS MORALES MD
--- NOTE | 2019-10-01 13:06 | CONSULT ---
[facility] Psychiatric Consult - Data Date of interview: 10/01/19 Admission source: [facility] Identifying data: Readmission to [facility] for this 39 y/o male self- referred for detoxification (THIERRY issues : xanax, cocaine, heroin, nicotine). Interviewed at [address] [place] [address]. 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 Substance Abuse History: Discussed with patient. Details in current [facility] report as follows : Smoking history: Current every day smoker. Have you smoked in the past 12 months: Yes. Aproximately how many cigarettes per day: 10. Cigars Per Day: 1. Hx Chewing Tobacco Use: No. Initiated information on smoking cessation : Yes. 'Breaking Loose' booklet given: 09/29/19. - Substance & Tx. History. Hx Alcohol Use: No. Hx Substance Use: Yes. Substance Use Type: Cocaine, Heroin , Tranquilizers (xanax). Hx Substance Use Treatment: Yes ([facility]). - Substances abused. Heroin. Substance route: Injection. Frequency: Daily. Amount used: 30 bags. Age of first use: 21. Date of last use: 09/28/19 (20 bags). Cocaine. Substance route: Injection. Frequency: Daily (speed balling w/ heroin). Amount used: 1 gram and half. Age of first use: 36. Date of last use: 09/28/19. Alprazolam (Xanax). Substance route: Oral. Frequency: Daily. Amount used: 6 of 2 mg. Age of first use: 39. Date of last use: 09/28/19 (1.5). Alcohol. Substance route: Oral. Frequency: Daily. Amount used: 4-5 2 oz shots of Meghana. Age of first use: 17. Date of last use: 08/14/19 Medical History: Bronchial asthma. Psychiatric History: Patient denies history of psychiatric hospitalizations. Not on psychotropic medications in spite of claims of ADD + MDD. Mr Mariano admits to being lost to psychiatric follow-up for months. He denies history of suicide attempts. Physical/Sexual Abuse/Trauma History: Patient denies. Additional Comment: Urine drug screen results: SANDY-Cocaine, FEN-Fentanyl, MOP- Opiates, OXY-Oxycodone. Noted. Mental Status Exam - Mental Status Exam Alert and Oriented to: Time, Place, Person Cognitive Function: Good Patient Appearance: Unkempt, Disheveled Mood: Nervous, Withdrawn, Irritable Affect: Mood Congruent, Constricted Patient Behavior: Fatigued, Cooperative Speech Pattern: Clear Voice Loudness: Normal Thought Process: Intact, Goal Oriented Thought Disorder: Not Present Hallucinations: Denies Suicidal Ideation: Denies Homicidal Ideation: Denies Insight/Judgement: Poor Sleep: Poorly, Difficulty falling asleep (wants seroquel at bedtime) Appetite: Good Gait/Station: Normal Psychiatric Findings - Problem List ([place] 1, 2,3) (1) Opioid dependence with withdrawal Current Visit: Yes Status: Acute (2) Sedative, hypnotic or anxiolytic dependence with withdrawal, uncomplicated Current Visit: Yes Status: Acute (3) Cocaine dependence, uncomplicated Current Visit: Yes Status: Chronic (4) Nicotine dependence Current Visit: Yes Status: Chronic (5) Substance induced mood disorder Current Visit: Yes Status: Chronic (6) Insomnia Current Visit: Yes Status: Chronic - Initial Treatment Plan Initial Treatment Plan: Psychoeducation. Sleep hygiene. Detoxification. AA/NA meetings. Seroquel 50 mg po hs (patient's request). Made aware of potential for metabolic syndrome, abnormal involuntary movements, sedation and cardiovascular adverse events. Patient gave verbal consent to Observation.
[2019-10-01] MEDS ORDERED: QUEtiapine FUMARATE 50 MG TABLET PO SCH (22:00)
[2019-10-01] MEDS: THIAMINE HCL 100 MG TABLET (FP) PO SCH (22:06)
[2019-10-01] MEDS: MELATONIN 5 MG TABLETS PO PRN (22:07)
[2019-10-02 09:22] VITALS: BP 125/69; PULSE 67; TEMP 96.7
[2019-10-02] MEDS ORDERED: METHADONE HCL 10 MG TABLET (FOR DETOX USE ONLY) ONE (09:45)
[2019-10-02] MEDS ORDERED: METHADONE HCL 5 MG TABLET (FOR DETOX USE ONLY) ONE (09:46)
[2019-10-02] MEDS ORDERED: METHADONE (DETOX) 10 MG, METHADONE (DETOX) 5 MG PO ONE (10:00)
[2019-10-02] MEDS: NICOTINE 21 MG/24 HOURS TOPICAL PATCH TD SCH (10:27)
[2019-10-02] MEDS: PRENATAL VITAMINS W/ FOLIC ACID TABLET (FP) PO SCH (10:27)
--- NOTE | 2019-10-02 13:56 | DS ---
[facility] Detox Discharge Summary Admission Date: 09/28/19 Discharge Date: 10/02/19 - History Present History: Alcohol Dependence, Opioid Dependence, Sedative Dependence Additional Comments: 39 yeas old male admitted him self to chemical detox on 09/29/19 for alcohol benzo opiate withdrawal sx management treated with valium and methadone detox regimen patient is alert oriented x 3 steady gait speech clearly coherently cardiac regular rate rhythm extremities full range of motion skin warm and dry patient prefers to leave the detox today instead of 10/04/19 estimated discharge date patient ate breakfast and lunch and showered strong recommend the patient to consider medication assisted treatment program and tow picker narcan from pharmacy Pertinent Past History: patient prefers to leave the detox unit case discussed with the nurse routine discharge is appropriated for volunteer detox admission facility discuss vivitrol along with behavior and psychosocial therapies as part of recovery - Physical Exam Results Vital Signs: Vital Signs Temperature 96.7 F L 10/02/19 09:20 Pulse Rate 67 10/02/19 09:20 Respiratory Rate 17 10/02/19 09:20 Blood Pressure 125/69 10/02/19 09:20 O2 Sat by Pulse Oximetry (%) Pertinent Admission Physical Exam Findings: alcohol benzo opiate withdrawal sx Laboratory Last Values WBC 5.9 K/mm3 (4.0-10.0) 09/29/19 07:50 RBC 4.94 M/mm3 (4.00-5.60) 09/29/19 07:50 Hgb 13.0 GM/dL (11.7-16.9) 09/29/19 07:50 Hct 39.4 % (35.4-49) 09/29/19 07:50 MCV 79.7 fl (80-96) L 09/29/19 07:50 MCH 26.2 pg (25.7-33.7) 09/29/19 07:50 MCHC 32.9 g/dl (32.0-35.9) 09/29/19 07:50 RDW 15.0 % (11.9-15.9) 09/29/19 07:50 Plt Count 409 K/MM3 (134-434) 09/29/19 07:50 MPV 8.0 fl (7.5-11.1) 09/29/19 07:50 Sodium 139 mmol/L (136-145) 09/29/19 07:50 Potassium 4.3 mmol/L (3.5-5.1) 09/29/19 07:50 Chloride 102 mmol/L (98-107) 09/29/19 07:50 Carbon Dioxide 31 mmol/L (21-32) 09/29/19 07:50 Anion Gap 5 MMOL/L (8-16) L 09/29/19 07:50 BUN 15.9 mg/dL (7-18) 09/29/19 07:50 Creatinine 0.8 mg/dL (0.55-1.3) 09/29/19 07:50 Est GFR (CKD-EPI)AfAm 131.34 09/29/19 07:50 Est GFR (CKD-EPI)NonAf 113.32 09/29/19 07:50 Random Glucose 70 mg/dL (74-106) L 09/29/19 07:50 Calcium 9.1 mg/dL (8.5-10.1) 09/29/19 07:50 Total Bilirubin 0.3 mg/dL (0.2-1) 09/29/19 07:50 AST 24 U/L (15-37) 09/29/19 07:50 ALT 19 U/L (13-61) 09/29/19 07:50 Alkaline Phosphatase 146 U/L (45-117) H 09/29/19 07:50 Total Protein 7.0 g/dl (6.4-8.2) 09/29/19 07:50 Albumin 3.6 g/dl (3.4-5.0) 09/29/19 07:50 lab noted - Treatment Hospital Course: Detox Protocol Followed, Detoxed Safely, Responded well, Discharged Condition Good, Rehab Referral Accepted Patient has Accepted a Rehab Referral to: medication assisted treatement program / [facility] - Medication Discharge Medications: Ambulatory Orders Albuterol Sulfate Inhaler - [Ventolin HFA Inhaler -] 2 inh PO Q4H PRN #1 inhaler 06/21/19 Naloxone HCl [Narcan] 4 mg NS ASDIR PRN #1 spray 09/30/19 Quetiapine Fumarate [Seroquel -] 50 mg PO HS #30 tablet 10/02/19 - Diagnosis (1) Alcohol dependence with uncomplicated withdrawal Status: Acute (2) Opioid dependence with withdrawal Status: Acute (3) Sedative, hypnotic or anxiolytic dependence with withdrawal, uncomplicated Status: Acute (4) Asthma Status: Chronic Qualifiers: Asthma severity: mild Asthma persistence: intermittent Asthma complication type: with status asthmaticus Qualified Code(s): J45.22 - Mild intermittent asthma with status asthmaticus (5) Nicotine dependence Status: Acute Qualifiers: Nicotine product type: cigarettes Substance use status: in withdrawal Qualified Code(s): F17.213 - Nicotine dependence, cigarettes, with withdrawal (6) Substance induced mood disorder Status: Suspected - AMA Did Patient Leave Against Medical Advice: No CIWA Score - CIWA Score Nausea/Vomitin-No Nausea/No Vomiting Muscle Tremors: 2 Anxiety: 2 Agitation: 0-Normal Activity Paroxysmal Sweats: No Perspiration Orientation: 0-Oriented Tacttile Disturbances: 1-Very Mild Itch/Numbness Auditory Disturbances: 0-None Visual Disturbances: 0-None Headache: 0-None Present CIWA-Ar Total Score: 5 COWS (PN) - Opiate Withdrawal Resting Pulse: 0= [place] 80 or Below Sweatin= Chills/Flushing Restless Observation: 0= Sits Still Pupil Size: 0= Normal to Room Light Bone or Joint Aches: 1= Mild Discomfort Runny Nose/ Eye Tearin= None GI Upset > 30mins: 0= None Tremor Observation of Outstretched Hands: 1= Tremor [place], Not Seen Yawning Observation: 1= 1-2x During Session Anxiety or Irritability: 1=Feels Anxious/Irritable Goose Flesh Skin: 0=Smooth Skin COWS Score: 5
[2019-10-03] MEDS ORDERED: METHADONE HCL 10 MG TABLET (FOR DETOX USE ONLY) PO ONE (10:00)
[2019-10-04] MEDS ORDERED: METHADONE HCL 5 MG TABLET (FOR DETOX USE ONLY) PO ONE (06:00)
== END 2019-10-02 13:24 | disposition home or self-care (01) | DRG 773 ==
LOC: YASAS 20:49 → Y3N 23:57
PROVIDERS: ADMIT Allergy & Immunology; ATTEND Allergy & Immunology
PROC: HZ2ZZZZ Detoxification Services for Substance Abuse Treatment (ICD-10-PCS; principal; 2019-09-28)
DX: F10.230 Alcohol dependence with withdrawal, uncomplicated (principal); F11.23 Opioid dependence with withdrawal; F13.230 Sedative, hypnotic or anxiolytic dependence with withdrawal, uncomplicated; F14.20 Cocaine dependence, uncomplicated; F17.210 Nicotine dependence, cigarettes, uncomplicated; F19.24 Other psychoactive substance dependence with psychoactive substance-induced mood disorder; F42.4 Excoriation (skin-picking) disorder; J45.22 Mild intermittent asthma with status asthmaticus; G47.00 Insomnia, unspecified; Z88.2 Allergy status to sulfonamides
CPT/HCPCS: 36415; 80053; 85027; 86593; 93005; 93010

== ENCOUNTER 2021-10-29 13:50 | Emergency (ER) | payer OTHER ==
[2021-10-29 13:59] VITALS: BP 123/84; PULSE 75; TEMP 98; BMI 33.3
[2021-10-29] MEDS ORDERED: KETOROLAC TROMETHAMINE 30 MG/1 ML VIAL IM ONE (14:19)
[2021-10-29] MEDS ORDERED: METHOCARBAMOL 500 MG TABLET PO ONE (14:20)
[2021-10-29] MEDS ORDERED: LIDOCAINE 5% TOPICAL PATCH TP ONE (14:21)
[2021-10-29] MEDS ORDERED: KETOROLAC TROMETHAMINE 30 MG/1 ML VIAL ONE (14:25)
[2021-10-29] MEDS ORDERED: LIDOCAINE 5% TOPICAL PATCH ONE (14:25)
[2021-10-29] MEDS ORDERED: METHOCARBAMOL 500 MG TABLET ONE (14:25)
[2021-10-29] MEDS ORDERED: diazePAM 5 MG TABLET PO ONE (17:07)
[2021-10-29] MEDS ORDERED: diazePAM 2 MG TABLET ONE (17:10)
[2021-10-29] MEDS ORDERED: LIDOCAINE PATCH REMOVAL MC SCH (22:00)
== END 2021-10-29 17:30 | disposition home or self-care (01) ==
LOC: JER 13:50
PROC: 3E023GC Introduction of Other Therapeutic Substance into Muscle, Percutaneous Approach (ICD-10-PCS; principal; 2021-10-29)
DX: M54.2 Cervicalgia (principal); M79.602 Pain in left arm
CPT/HCPCS: 99284-25

== ENCOUNTER 2025-03-09 21:09 | Emergency (ER) | payer OTHER ==
[2025-03-09 21:16] VITALS: RESP 16; TEMP 98.2; BMI 30.5
[2025-03-09 22:35] VITALS: BP 159/96; PULSE 68
== END 2025-03-09 22:43 | disposition home or self-care (01) ==
LOC: FER 21:09
DX: R00.2 Palpitations (principal); R42 Dizziness and giddiness
CPT/HCPCS: 93005; 99283-25